=== PATIENT | female | born 1950 | race Caucasian/White ===

== ENCOUNTER 2020-05-17 14:48 | Inpatient (IN) ==
[2020-05-17] MEDS ORDERED: ALBUTEROL 2.5 MG/3 ML NEB RESP TX PRN (16:15)
[2020-05-17] MEDS ORDERED: ONDANSETRON 4 MG/2 ML VIAL IV PRN (16:15)
[2020-05-17] MEDS ORDERED: DOPamine 800 MG/250 ML PREMIX IV SCH (16:30)
[2020-05-17] MEDS: LACTATED RINGERS 1,000 ML IV SCH (16:37)
[2020-05-17 17:07] LABS: Basophils % 0.3 % (0.0-0.8); Eosinophils # 0.1 10*3/uL (0.0-0.87); Eosinophils % 0.6 % (0.00-10.9); Hematocrit 37.3 VOL% (35.7-47.0); Hemoglobin 12.1 GM/DL (12.0-16.0); Immature Granulocytes % 0.8 %; Immature Granulocytes Absolute 0.08 #; Lymphocytes # 1.3 10*3/uL (1.4-4.0); Lymphocytes % 12.2 % (21.3-54.2); Mean Corpuscular HGB Conc 32.4 GM/DL (32-36); Mean Corpuscular Volume 92.1 FL (87-102); Monocytes % 3.9 % (1.7-12.7); Neutrophils % 82.2 % (38.7-73.9); Platelet Count 195 T/CUMM (130-400); Red Blood Count 4.05 MC/CUMM (3.8-5.5); Red Cell Distribution Width 12.5 % (9.3-17.3); White Blood Count 10.6 T/CUMM (4-12)
[2020-05-17] MEDS: PANTOPRAZOLE 40 MG VIAL IV SCH (17:13)
[2020-05-17 17:26] LABS: Alanine Aminotransferase 27 U/L (13-56); Albumin 3.5 G/DL (3.4-5.0); Alkaline Phosphatase 80 U/L (45-117); Aspartate Amino Transferase 33 U/L (0-37); Bilirubin,Total < 0.39 MG/DL (0.2-1.0); Blood Urea Nitrogen 41 MG/DL (7-18); Calcium 9.3 MG/DL (8.5-10.1); Carbon Dioxide 23 MMOL/L (21-32); Estimated Glom Filtration Rate 32 ML/MIN; Glucose 138 MG/DL (74-106); Osmolality,Calculated 273.7 MOS/KG (273-304); Potassium 3.5 MMOL/L (3.5-5.1); Sodium 131 MMOL/L (136-145); Total Protein 6.6 G/DL (5.0-7.5)
[2020-05-17] MEDS: ENOXAPARIN 30 MG/0.3 ML SYRINGE SUBCUT SCH (17:43)
[2020-05-17 19:16] LABS: Bilirubin,Urine Negative (Negative); Blood, Urine Negative (Negative); Glucose,Urine (UA) Negative (Negative); Ketones,Urine Negative (Negative); Nitrite,Urine Negative (Negative); Protein,Urine Negative; Urine Appearance CLEAR (Clear); Urine Color Straw (Yellow); Urine Specific Gravity 1.003 (1.001-1.035); Urine Urobilinogen < 2.0 EU/DL (0.2-1.0); WBC,Urine 1 /HPF (0-6)
[2020-05-18] MEDS: LACTATED RINGERS 1,000 ML IV SCH ×3 (02:51→23:38)
[2020-05-18 04:53] LABS: Basophils % 0.2 % (0.0-0.8); Eosinophils % 0.1 % (0.00-10.9); Hematocrit 36.8 VOL% (35.7-47.0); Hemoglobin 12.2 GM/DL (12.0-16.0); Immature Granulocytes % 0.7 %; Immature Granulocytes Absolute 0.06 #; Lymphocytes # 0.8 10*3/uL (1.4-4.0); Lymphocytes % 8.9 % (21.3-54.2); Mean Corpuscular HGB Conc 33.2 GM/DL (32-36); Mean Corpuscular Volume 89.3 FL (87-102); Mean Platelet Volume 11.8 FL (9.6-12.0); Monocytes % 11.7 % (1.7-12.7); Neutrophils % 78.4 % (38.7-73.9); Platelet Count 169 T/CUMM (130-400); Red Blood Count 4.12 MC/CUMM (3.8-5.5); Red Cell Distribution Width 12.2 % (9.3-17.3); White Blood Count 8.9 T/CUMM (4-12)
[2020-05-18 05:32] LABS: Albumin 3.1 G/DL (3.4-5.0); Bilirubin,Total 0.4 MG/DL (0.2-1.0); Calcium 9.7 MG/DL (8.5-10.1); Osmolality,Calculated 278.1 MOS/KG (273-304); Potassium 3.8 MMOL/L (3.5-5.1); Thyroid Stimulating Hormone 0.707 uIU/ml (0.358-3.74); Total Protein 6.4 G/DL (5.0-7.5)
[2020-05-18] MEDS ORDERED: POTASSIUM CHLORIDE 20 MEQ TABLET PO ONE (13:38)
[2020-05-18] MEDS: SUCRALFATE 1 GM TABLET PO SCH ×3 (15:10→20:59)
[2020-05-18] MEDS: ENOXAPARIN 30 MG/0.3 ML SYRINGE SUBCUT SCH (17:25)
[2020-05-18] MEDS: PANTOPRAZOLE 40 MG VIAL IV SCH (17:25)
[2020-05-19 06:20] LABS: Calcium 8.6 MG/DL (8.5-10.1); Osmolality,Calculated 283.3 MOS/KG (273-304); Potassium 3.6 MMOL/L (3.5-5.1)
[2020-05-19 06:33] LABS: Basophils % 0.4 % (0.0-0.8); Eosinophils # 0.1 10*3/uL (0.0-0.87); Eosinophils % 1.2 % (0.00-10.9); Hematocrit 30.2 VOL% (35.7-47.0); Immature Granulocytes % 0.4 %; Immature Granulocytes Absolute 0.02 #; Lymphocytes # 1.6 10*3/uL (1.4-4.0); Lymphocytes % 30.6 % (21.3-54.2); Mean Corpuscular HGB Conc 32.1 GM/DL (32-36); Mean Corpuscular Volume 93.5 FL (87-102); Mean Platelet Volume 12.5 FL (9.6-12.0); Monocytes % 12.2 % (1.7-12.7); Neutrophils % 55.2 % (38.7-73.9); Red Cell Distribution Width 13.1 % (9.3-17.3)
[2020-05-19 06:37] LABS: Hemoglobin 9.7 GM/DL (12.0-16.0); Platelet Count 124 T/CUMM (130-400); Red Blood Count 3.23 MC/CUMM (3.8-5.5); White Blood Count 5.1 T/CUMM (4-12)
[2020-05-19] MEDS: SIMVASTATIN 10 MG TABLET PO SCH (08:40)
[2020-05-19] MEDS: SUCRALFATE 1 GM TABLET PO SCH ×4 (08:40→20:33)
[2020-05-19] MEDS: LEVOTHYROXINE 25 MCG TABLET PO SCH (08:40)
[2020-05-19] MEDS ORDERED: NON-FORMULARY MEDICATION (Albuterol Sulfate [Ventolin Hfa] 90 mcg/actuation HFA aerosol in INH SCH (09:00)
[2020-05-19] MEDS: LACTATED RINGERS 1,000 ML IV SCH (10:33)
[2020-05-19] MEDS ORDERED: MAGNESIUM SULF RIDER 2 GM in PREMIX 1 EACH IV ONE (13:45)
[2020-05-19] MEDS: DILTIAZEM 90 MG TABLET PO SCH ×2 (14:08→20:33)
[2020-05-19] MEDS: carvediloL 25 MG TABLET PO SCH ×2 (14:09→20:33)
[2020-05-19] MEDS ORDERED: DILTIAZEM 90 MG TABLET PO SCH (15:00)
[2020-05-19] MEDS: PANTOPRAZOLE 40 MG VIAL IV SCH (17:00)
[2020-05-19] MEDS: ENOXAPARIN 30 MG/0.3 ML SYRINGE SUBCUT SCH (17:46)
[2020-05-20 08:22] LABS: Calcium 8.8 MG/DL (8.5-10.1); Osmolality,Calculated 286.8 MOS/KG (273-304); Potassium 3.9 MMOL/L (3.5-5.1)
[2020-05-20] MEDS: DILTIAZEM 90 MG TABLET PO SCH (08:24)
[2020-05-20] MEDS: SIMVASTATIN 10 MG TABLET PO SCH (08:24)
[2020-05-20] MEDS: SUCRALFATE 1 GM TABLET PO SCH (08:24)
[2020-05-20] MEDS: LEVOTHYROXINE 25 MCG TABLET PO SCH (08:24)
[2020-05-20] MEDS: carvediloL 25 MG TABLET PO SCH (08:25)
[2020-05-20 09:00] VITALS: BP 170/76
== END 2020-05-20 10:15 | disposition home or self-care (01) | DRG 309 ==
LOC: N.CC 16:35 → SUATTDRO 16:35 → N.TELES 05-18 16:17
PROVIDERS: ADMIT Internal Medicine; ATTEND Family Medicine